=== PATIENT | female | born 1965 | race Caucasian/White ===

== ENCOUNTER 2019-07-03 10:20 | Emergency (ER) | payer OTHER ==
[~2019-07-03] VITALS: Ht 172.7 cm; Wt 97.5 kg
[~2019-07-03 10:20] MED LIST: GLIP10TA12 PO; LISI10TA11 PO; METF100028 PO
[2019-07-03 10:25] VITALS: BP 156/78
[2019-07-03 12:15] VITALS: BP 156/78
== END 2019-07-03 12:00 | disposition home or self-care (01) ==
LOC: MED 10:20
DX: R05 Cough (principal); E11.9 Type 2 diabetes mellitus without complications; Z79.899 Other long term (current) drug therapy; Z79.4 Long term (current) use of insulin
CPT/HCPCS: 87804; 99283